=== PATIENT | female | born 1965 | race Caucasian/White ===

== ENCOUNTER 2017-01-31 16:15 | Emergency (ER) | payer OTHER ==
[2017-01-31 16:20] VITALS: BP 122/71; PULSE 95; TEMP 98
--- NOTE | 2017-01-31 16:22 | PDOC ---
Rapid Medical Evaluation Medical Evaluation: Allergies Allergy/AdvReac Type Severity Reaction Status Date / Time No Known Allergies Allergy Verified 03/27/12 19:54 01/31/17 16:17 RME: I have performed a brief in person evaluation of this patient. The patient presents with chief complaint of : abd pain since last night worse after eating radiates to the left side of her chest Pertinent PE findings: appears uncomfortable , vitals stable I have ordered the following: EKG labs The patient will proceed to the ER for further evaluation.
[2017-01-31 16:53] LABS: BASO % 0.8 % (0-2.0); EOS % 1.8 % (0-4.5); MCH 20.9 pg (25.7-33.7); MEAN CELL VOLUME 65.3 fl (80-96); MEAN PLT VOLUME 8.3 fl (7.5-11.1); NEUT % 61.9 % (42.8-82.8); PLATELET COUNT 319 K/MM3 (134-434); RDW 17.3 % (11.6-15.6); WHITE BLOOD COUNT 6.6 K/mm3 (4.0-10.0)
[2017-01-31 17:16] LABS: ALBUMIN 3.6 g/dl (3.4-5.0); AMYLASE 72 U/L (25-115); ANION GAP 4 (8-16); CALCIUM 7.8 mg/dL (8.5-10.1); CO2 27 mmol/L (21-32); GLUCOSE,RANDOM 152 mg/dL (74-106)
[2017-01-31 17:23] LABS: ALK PHOS 58 U/L (45-117); BILIRUBIN,TOTAL 0.3 mg/dL (0.2-1.0); CPK 61 IU/L (26-192); CREATININE 0.6 mg/dL (0.55-1.02); SGOT/AST 12 U/L (15-37); SGPT/ALT 13 U/L (12-78); TOT PROT 7.2 g/dl (6.4-8.2); TROPONIN I < 0.02 ng/ml (0.00-0.05)
--- NOTE | 2017-01-31 18:07 | PDOC ---
History of Present Illness - General Chief Complaint: Pain Stated Complaint: STOMACH PAIN Time Seen by Provider: 01/31/17 17:18 Past History - Past Medical History Allergies/Adverse Reactions: Allergies Allergy/AdvReac Type Severity Reaction Status Date / Time No Known Allergies Allergy Verified 01/31/17 16:50 Home Medications: Ambulatory Orders NK [No Known Home Medication] 01/31/17 COPD: No Other medical history: none - Suicide/Smoking/Psychosocial Hx Smoking Status: Yes Smoking History: Current every day smoker Number of Cigarettes Smoked Daily: 5 Information on smoking cessation initiated: No Hx Alcohol Use: No Drug/Substance Use Hx: No *Physical Exam - Vital Signs Last Vital Signs Temp Pulse Resp BP Pulse Ox 98.0 F 95 H 20 122/71 98 01/31/17 16:17 01/31/17 16:17 01/31/17 16:17 01/31/17 16:17 01/31/17 16:17 Heart Score/ECG Review - History History: Slightly suspicious ED Treatment Course - LABORATORY CBC & Chemistry Diagram: 01/31/17 16:30 01/31/17 16:30 - ADDITIONAL ORDERS Additional order review: Laboratory Results 01/31/17 16:30 Sodium 139 Potassium 3.6 Chloride 108 H Carbon Dioxide 27 Anion Gap 4 L BUN 8 Creatinine 0.6 Creat Clearance w eGFR > 60 Random Glucose 152 H Calcium 7.8 L Total Bilirubin 0.3 AST 12 L ALT 13 Alkaline Phosphatase 58 Creatine Kinase 61 Troponin I < 0.02 Total Protein 7.2 Albumin 3.6 Total Amylase 72 Lipase 255 01/31/17 16:30 RBC 4.77 MCV 65.3 L MCHC 32.0 RDW 17.3 H MPV 8.3 Neutrophils % 61.9 Lymphocytes % 28.6 Monocytes % 6.9 Eosinophils % 1.8 Basophils % 0.8 Medical Decision Making - Medical Decision Making 01/31/17 18:38 51-year-old female with no significant past medical history presents with sternal chest pain radiating down to the left upper quadrant. Patient also reporting pain at times in the epigastric area radiates to the back. Pain has been constant for 24 hours. Vitals unremarkable. Exam with epigastric tenderness to palpation. EKG with . Given chest pain will check 2 troponins although patient is low risk. DDx also includes pancreatitis vs gastritis vs cholecystitis vs GERD. Prelim labs show anemia with a hemoglobin to 9.9. Will obtain a stool guaiac to rule out GI bleed. *DC/Admit/Observation/Transfer - Referrals Referrals: Brian Costello MD [Primary Care Provider] - - Patient Instructions - Post Discharge Activity
[2017-01-31] MEDS ORDERED: SODIUM CHLORIDE 0.9% 500 ML INFUS.BAG IV ONE (18:35)
[2017-01-31 18:55] LABS: ANISOCYTOSIS 1+; HYPOCHROMIA 2+; MICROCYTOSIS 1+
[2017-01-31] MEDS ORDERED: FAMOTIDINE 20 MG/50 ML IVPB 20 MG/50 ML MG IVPB ONE ×2 (18:55→19:00)
[2017-01-31 19:40] LABS: ALBUMIN 3.2 g/dl (3.4-5.0); ANION GAP 6 (8-16); BILIRUBIN,TOTAL 0.2 mg/dL (0.2-1.0); CALCIUM 7.1 mg/dL (8.5-10.1); CO2 24 mmol/L (21-32); CREATININE 0.5 mg/dL (0.55-1.02); GLUCOSE,RANDOM 90 mg/dL (74-106); MAGNESIUM 2.3 mg/dL (1.8-2.4); SGOT/AST 9 U/L (15-37); SGPT/ALT 12 U/L (12-78); TOT PROT 6.7 g/dl (6.4-8.2)
[2017-01-31 19:43] LABS: ALK PHOS 51 U/L (45-117); TROPONIN I < 0.02 ng/ml (0.00-0.05)
[2017-01-31 21:06] LABS: ALBUMIN 3.3 g/dl (3.4-5.0); ANION GAP 7 (8-16); BILIRUBIN,TOTAL 0.2 mg/dL (0.2-1.0); CALCIUM 7.3 mg/dL (8.5-10.1); CO2 23 mmol/L (21-32); CREATININE 0.5 mg/dL (0.55-1.02); GLUCOSE,RANDOM 73 mg/dL (74-106); SGOT/AST 10 U/L (15-37); SGPT/ALT 13 U/L (12-78); TOT PROT 6.7 g/dl (6.4-8.2)
[2017-01-31 21:08] LABS: ALK PHOS 53 U/L (45-117); CPK 56 IU/L (26-192); TROPONIN I < 0.02 ng/ml (0.00-0.05)
--- NOTE | 2017-01-31 21:22 | PDOC ---
History of Present Illness - General Chief Complaint: Pain Stated Complaint: STOMACH PAIN Time Seen by Provider: 01/31/17 17:18 Past History - Past Medical History Allergies/Adverse Reactions: Allergies Allergy/AdvReac Type Severity Reaction Status Date / Time No Known Allergies Allergy Verified 01/31/17 16:50 Home Medications: Ambulatory Orders NK [No Known Home Medication] 01/31/17 COPD: No Other medical history: none - Suicide/Smoking/Psychosocial Hx Smoking Status: Yes Smoking History: Current every day smoker Number of Cigarettes Smoked Daily: 5 Information on smoking cessation initiated: No Hx Alcohol Use: No Drug/Substance Use Hx: No *Physical Exam - Vital Signs Last Vital Signs Temp Pulse Resp BP Pulse Ox 98.0 F 95 H 20 122/71 98 01/31/17 16:17 01/31/17 16:17 01/31/17 16:17 01/31/17 16:17 01/31/17 16:17 ED Treatment Course - LABORATORY CBC & Chemistry Diagram: 01/31/17 16:30 01/31/17 20:33 - ADDITIONAL ORDERS Additional order review: Laboratory Results 01/31/17 01/31/17 01/31/17 20:33 18:38 18:37 Sodium 141 Potassium 3.7 Chloride 111 H Carbon Dioxide 23 Anion Gap 7 L BUN 8 Creatinine 0.5 L Creat Clearance w eGFR > 60 Random Glucose 73 L Calcium 7.3 L Magnesium Total Bilirubin 0.2 AST 10 L ALT 13 Alkaline Phosphatase 53 Creatine Kinase 56 Troponin I < 0.02 Total Protein 6.7 Albumin 3.3 L Total Amylase Lipase Beta HCG, Quant < 1.0 Urine HCG, Qual Stool Occult Blood Negative 01/31/17 01/31/17 01/31/17 18:37 16:47 16:30 Sodium 140 139 Potassium 3.5 3.6 Chloride 110 H 108 H Carbon Dioxide 24 27 Anion Gap 6 L 4 L BUN 8 8 Creatinine 0.5 L 0.6 Creat Clearance w eGFR > 60 > 60 Random Glucose 90 D 152 H Calcium 7.1 L 7.8 L Magnesium 2.3 Total Bilirubin 0.2 D 0.3 AST 9 L D 12 L ALT 12 13 Alkaline Phosphatase 51 58 Creatine Kinase 61 Troponin I < 0.02 < 0.02 Total Protein 6.7 7.2 Albumin 3.2 L 3.6 Total Amylase 72 Lipase 229 255 Beta HCG, Quant Urine HCG, Qual Negative Stool Occult Blood 01/31/17 16:30 RBC 4.77 MCV 65.3 L MCHC 32.0 RDW 17.3 H MPV 8.3 Neutrophils % 61.9 Lymphocytes % 28.6 Monocytes % 6.9 Eosinophils % 1.8 Basophils % 0.8 - Medications Given in the ED: ED Medications Discontinued Medications Generic Name Dose Route Start Last Admin Trade Name Magda PRN Reason Stop Dose Admin Famotidine/Sodium Chloride 20 mg in 50 mls @ 100 mls/hr 01/31/17 19:00 19:00 Pepcid 20 Mg Premixed Ivpb - IVPB 01/31/17 19:29 100 mls/hr ONCE ONE Administration Sodium Chloride 1,000 ml 01/31/17 18:35 01/31/17 18:53 Normal Saline - IV 01/31/17 18:36 1,000 ml ONCE ONE Administration Medical Decision Making - Medical Decision Making 01/31/17 21:19 troponin x 2 negative. Pt and family advised to follow up with various specialists to evaluate possible anemia *DC/Admit/Observation/Transfer Diagnosis at time of Disposition: Chest pain - Discharge Dispostion Disposition: HOME Condition at time of disposition: Stable Admit: No - Referrals Referrals: Brian Costello MD [Primary Care Provider] - Zaheer Manuel MD [Staff Physician] - Donald Alicia MD [Staff Physician] - Eric Ahumada MD [Staff Physician] - - Patient Instructions Printed Discharge Instructions: DI for Chest Pain Additional Instructions: Please follow with your primary care physician for referral for various other specialties to evaluate the possible anemia - Post Discharge Activity
--- NOTE | 2017-02-01 21:51 | EKG ---
Test Reason : Blood Pressure : / mmHG Vent. Rate : 086 BPM Atrial Rate : 086 BPM P-R Int : 140 ms QRS Dur : 082 ms QT Int : 382 ms P-R-T Axes : 025 029 004 degrees QTc Int : 457 ms NORMAL SINUS RHYTHM NORMAL ECG NO PREVIOUS ECGS AVAILABLE Confirmed by GLO PARR MD ([id number]) on 02/01/2017 9:51:41 PM Referred By: Confirmed By:GLO PARR MD
--- NOTE | 2017-02-08 13:06 | EKG ---
Test Reason : Blood Pressure : / mmHG Vent. Rate : 078 BPM Atrial Rate : 078 BPM P-R Int : 166 ms QRS Dur : 072 ms QT Int : 400 ms P-R-T Axes : 048 037 009 degrees QTc Int : 456 ms NORMAL SINUS RHYTHM NORMAL ECG WHEN COMPARED WITH ECG OF 31-JAN-2017 16:22, NO SIGNIFICANT CHANGE WAS FOUND Confirmed by HECTOR CHARLES MD ([id number]) on 02/08/2017 1:06:25 PM Referred By: Confirmed By:HECTOR CHARLES MD
== END 2017-01-31 21:28 | disposition home or self-care (01) ==
LOC: JER 16:15
PROC: 3E033GC Introduction of Other Therapeutic Substance into Peripheral Vein, Percutaneous Approach (ICD-10-PCS; principal; 2017-01-31)
DX: R07.89 Other chest pain (principal)
CPT/HCPCS: 36415; 71020-TC; 80053; 82150; 82272; 82550; 83690; 83735; 84484; 84702; 84703; 85025; 93005; 93010; 99282-25

== ENCOUNTER 2020-02-18 00:57 | Observation (INO) | payer OTHER ==
[2020-02-18 01:19] VITALS: TEMP 98.7; BMI 26.9
[2020-02-18 02:13] LABS: BASO % 0.7 % (0-2.0); EOS % 2.7 % (0-4.5); HEMOGLOBIN 11.4 GM/dL (10.7-15.3); LYMPH % 25.3 % (8-40); MCH 25.1 pg (25.7-33.7); MCHC 32.5 g/dl (32.0-36.0); MEAN CELL VOLUME 77.2 fl (80-96); MEAN PLT VOLUME 8.3 fl (7.5-11.1); MONO % 8.6 % (3.8-10.2); NEUT % 62.7 % (42.8-82.8); PLATELET COUNT 262 K/MM3 (134-434); RBC 4.54 M/mm3 (3.60-5.2); RDW 15.6 % (11.6-15.6); WHITE BLOOD COUNT 7.4 K/mm3 (4.0-10.0)
[2020-02-18 02:26] LABS: INR 0.96 (0.83-1.09); PROTHROMBIN TIME (PATIENT) 11.6 SEC (9.7-13.0)
[2020-02-18 02:28] LABS: ACTIVATED PTT 26.2 SECONDS (25.2-36.5)
[2020-02-18 02:31] LABS: CHLORIDE 107 mmol/L (98-107); POTASSIUM 3.4 mmol/L (3.5-5.1); SODIUM 139 mmol/L (136-145)
[2020-02-18 02:33] LABS: ALBUMIN 3.6 g/dl (3.4-5.0); ANION GAP 8 MMOL/L (8-16); BLOOD UREA NITROGEN 8.4 mg/dL (7-18); CALCIUM 8.2 mg/dL (8.5-10.1); CO2 24 mmol/L (21-32); GLUCOSE,RANDOM 102 mg/dL (74-106)
[2020-02-18 02:37] LABS: CHOLESTEROL 170 mg/dL (50-200); CREATININE 0.5 mg/dL (0.55-1.3); SGOT/AST 11 U/L (15-37); SGPT/ALT 12 U/L (13-61); TRIGLYCERIDES 89 mg/dL (0-150)
[2020-02-18 02:38] LABS: ALK PHOS 62 U/L (45-117); BILIRUBIN,TOTAL 0.2 mg/dL (0.2-1); HDL CHOLESTEROL 50 mg/dL (40-60); LDL CHOLESTEROL (ONLY SJRH) 109 mg/dL (5-100); TOT PROT 6.8 g/dl (6.4-8.2)
[2020-02-18] MEDS ORDERED: ASPIRIN 81 MG CHEWABLE TABLETS PO ONE (03:37)
[2020-02-18] MEDS ORDERED: ASPIRIN 81 MG CHEWABLE TABLETS ONE (03:42)
[2020-02-18] MEDS ORDERED: DEXTROSE 5%-0.45% SALINE 1,000 ML IV SCH (05:00)
[2020-02-18 05:09] VITALS: BP 97/60; PULSE 70
[2020-02-18 05:55] LABS: MAGNESIUM 2.3 mg/dL (1.8-2.4)
[2020-02-19] MEDS ORDERED: ASPIRIN COATED 81 MG TABLET.EC PO SCH (10:00)
== END 2020-02-18 05:30 | disposition left against medical advice (07) ==
LOC: EDBD → JER 00:57 → MERGE 03:30 → JERBED 03:30
PROVIDERS: ADMIT Internal Medicine; ATTEND Family Medicine
DX: G45.9 Transient cerebral ischemic attack, unspecified (principal); M62.81 Muscle weakness (generalized); F17.210 Nicotine dependence, cigarettes, uncomplicated
CPT/HCPCS: 36415; 70450-TC; 80053; 80061; 82550; 83721; 83735; 84484; 85025; 85610; 85730; 86850; 86900; 86901; 93005; 93010; 99285-25; G0378

== ENCOUNTER 2020-02-18 16:47 | Emergency (ER) | payer OTHER ==
[2020-02-18 17:02] VITALS: BMI 26.9
[2020-02-18] MEDS ORDERED: SODIUM CHLORIDE 0.9% 500 ML INFUS.BAG IV ONE (17:58)
[2020-02-18] MEDS ORDERED: ACETAMINOPHEN 325 MG TABLET (FP) PO ONE (17:58)
[2020-02-18] MEDS ORDERED: METOCLOPRAMIDE HCL INJECTION 10 MG/2 ML VIAL IVPUSH ONE (17:58)
[2020-02-18] MEDS ORDERED: ACETAMINOPHEN 1000 MG/100 ML VIAL (NON FORMULARY) IVPB ONE (17:58)
[2020-02-18 18:04] LABS: BASO % 1.1 % (0-2.0); EOS % 3.1 % (0-4.5); HEMATOCRIT 36.9 % (32.4-45.2); HEMOGLOBIN 12.1 GM/dL (10.7-15.3); MCH 25.4 pg (25.7-33.7); MCHC 32.8 g/dl (32.0-36.0); MEAN CELL VOLUME 77.6 fl (80-96); MEAN PLT VOLUME 8.7 fl (7.5-11.1); MONO % 8.7 % (3.8-10.2); NEUT % 61.1 % (42.8-82.8); PLATELET COUNT 261 K/MM3 (134-434); RBC 4.76 M/mm3 (3.60-5.2); RDW 15.6 % (11.6-15.6); WHITE BLOOD COUNT 5.5 K/mm3 (4.0-10.0)
[2020-02-18] MEDS ORDERED: ACETAMINOPHEN INJECTION 100 ML IVPB ONE (18:09)
[2020-02-18] MEDS ORDERED: METOCLOPRAMIDE HCL INJECTION 10 MG/2 ML VIAL ONE (18:09)
[2020-02-18 18:11] LABS: INR 0.97 (0.83-1.09); PROTHROMBIN TIME (PATIENT) 11.9 SEC (9.7-13.0)
[2020-02-18 18:14] LABS: ACTIVATED PTT 27.2 SECONDS (25.2-36.5)
[2020-02-18 18:22] LABS: CHLORIDE 108 mmol/L (98-107); POTASSIUM 3.7 mmol/L (3.5-5.1); SODIUM 142 mmol/L (136-145)
[2020-02-18 18:24] LABS: CALCIUM 8.6 mg/dL (8.5-10.1)
[2020-02-18 18:25] LABS: ALBUMIN 3.6 g/dl (3.4-5.0); ANION GAP 6 MMOL/L (8-16); CO2 27 mmol/L (21-32); GLUCOSE,RANDOM 94 mg/dL (74-106)
[2020-02-18 18:28] LABS: CHOLESTEROL 173 mg/dL (50-200); CREATININE 0.5 mg/dL (0.55-1.3); SGOT/AST 12 U/L (15-37); SGPT/ALT 14 U/L (13-61); TRIGLYCERIDES 120 mg/dL (0-150)
[2020-02-18 18:29] LABS: BILIRUBIN,TOTAL 0.3 mg/dL (0.2-1); LDL CHOLESTEROL (ONLY SJRH) 112 mg/dL (5-100)
[2020-02-18 18:30] LABS: HDL CHOLESTEROL 53 mg/dL (40-60)
[2020-02-18 18:32] LABS: ALK PHOS 65 U/L (45-117)
[2020-02-18 21:16] VITALS: BP 117/57; PULSE 82; TEMP 98.6
== END 2020-02-18 21:19 | disposition home or self-care (01) ==
LOC: JER 16:47
PROC: 3E0333Z Introduction of Anti-inflammatory into Peripheral Vein, Percutaneous Approach (ICD-10-PCS; principal; 2020-02-18)
PROC: 3E033GC Introduction of Other Therapeutic Substance into Peripheral Vein, Percutaneous Approach (ICD-10-PCS; 2020-02-18)
DX: R51.9 Headache, unspecified (principal)
CPT/HCPCS: 36415; 70551-TC; 71045-TC-FY; 80053; 80061; 82550; 83721; 84484; 84703; 85025; 85610; 85730; 93005; 93010; 99285-25; C9803; J0131; U0003

== ENCOUNTER → 2020-04-12 | Day surgery (SDC) | payer OTHER ==
[~2020-04-12] MED LIST: LIDOCAINE HCL/PF 2% SDV 5ML VIAL ONE; LIDOCAINE VISCOUS 2% ORAL/TOP 20 ML UNIT-DOSE CUP ONE
== END | disposition home or self-care (01) ==
LOC: JASU-ENDO 04:33
PROVIDERS: ATTEND Internal Medicine Cardiovascular Disease
DX: Z53.8 Procedure and treatment not carried out for other reasons (principal)

== ENCOUNTER 2020-04-19 04:53 | Day surgery (SDC) | payer OTHER ==
[2020-04-19 12:13] LABS: HEMATOCRIT 35.3 % (32.4-45.2); HEMOGLOBIN 11.5 GM/dL (10.7-15.3); MCH 23.9 pg (25.7-33.7); MCHC 32.5 g/dl (32.0-36.0); MEAN CELL VOLUME 73.4 fl (80-96); MEAN PLT VOLUME 8.4 fl (7.5-11.1); PLATELET COUNT 279 K/MM3 (134-434); RBC 4.81 M/mm3 (3.60-5.2); RDW 15.8 % (11.6-15.6); WHITE BLOOD COUNT 5.7 K/mm3 (4.0-10.0)
[2020-04-19 12:33] LABS: INR 0.99 (0.83-1.09); PROTHROMBIN TIME (PATIENT) 12.2 SEC (9.7-13.0)
[2020-04-19 12:35] LABS: ACTIVATED PTT 27.5 SECONDS (25.2-36.5)
[2020-04-19 12:39] LABS: CALCIUM 8.6 mg/dL (8.5-10.1)
[2020-04-19 12:40] LABS: BLOOD UREA NITROGEN 10.2 mg/dL (7-18)
[2020-04-19 12:43] LABS: CREATININE 0.6 mg/dL (0.55-1.3)
[2020-04-19 12:51] VITALS: BMI 29.2
[2020-04-19] MEDS ORDERED: LIDOCAINE VISCOUS 2% ORAL/TOP 20 ML UNIT-DOSE CUP MM ONE (13:30)
[2020-04-19 14:25] VITALS: TEMP 97
[2020-04-19 14:51] VITALS: BP 116/66; PULSE 76
== END 2020-04-19 15:11 | disposition home or self-care (01) ==
LOC: JASU-ENDO 04:53
PROVIDERS: ATTEND Internal Medicine Cardiovascular Disease
PROC: B246ZZ4 Ultrasonography of Right and Left Heart, Transesophageal (ICD-10-PCS; principal; 2020-04-19 13:30)
DX: I51.0 Cardiac septal defect, acquired (principal)
CPT/HCPCS: 36415; 80048; 85027; 85610; 85730; 93312; 93325

== ENCOUNTER 2022-12-10 10:58 | Emergency (ER) | payer OTHER ==
[2022-12-10 11:13] VITALS: BMI 23.4
[2022-12-10] MEDS ORDERED: IBUPROFEN 600 MG TABLET (FP) PO ONE ×2 (11:23→11:45)
[2022-12-10 12:46] VITALS: BP 100/78; PULSE 85; RESP 19; TEMP 98.6
== END 2022-12-10 12:46 | disposition home or self-care (01) ==
LOC: JERFT 10:58 → JER 10:58 → JERFT 12:46
DX: R05.9 Cough, unspecified (principal); R51.9 Headache, unspecified; J02.9 Acute pharyngitis, unspecified; R09.81 Nasal congestion; B34.9 Viral infection, unspecified; Z20.822 Contact with and (suspected) exposure to COVID-19
CPT/HCPCS: 0241U-QW; 71046-TC-FY; 87651; 99284-25